=== PATIENT | female | born 1950 | race Caucasian/White ===

== ENCOUNTER 2021-10-21 11:10 | Emergency (ER) | payer MEDICARE ==
[~2021-10-21 11:10] MED LIST: ASPIRIN81 MG PO; DICLOFENAC-MIS1 EAC1 PO; FEOSOL325 MG PO; OCUVITE ADULT1 EAC1 PO; PERCOCET 5-3251 EACH PO; ZOFRAN4 M1 PO; ZYRTEC10 M3 PO
[2021-10-21 13:24] LABS: HCT 41.2 % (37.0-47.0); HGB 13.5 g/dl (12.5-16.0); MCH 29.5 pg (25.0-31.0); MCHC 32.8 g/dL (32.0-36.0); MPV 10.2 fL (6.0-9.5); RBC 4.58 M/uL (4.20-5.40); RDW 13.9 % (11.5-14.0); WBC 17.6 K/uL (4.0-10.5)
[2021-10-21 13:49] LABS: BUN/CREAT RATIO (CALC) 19.1 RATIO; CREATININE 0.68 mg/dL (0.51-0.95); POTASSIUM 3.8 mmol/L (3.5-5.1)
[2021-10-21] MEDS ORDERED: AUGMENTIN 875-1 EACH PO (14:55)
[2021-10-24] MEDS ORDERED: PERCOCET 5-3251 EACH PO (09:11)
== END 2021-10-21 15:10 | disposition home or self-care (01) ==
LOC: FER 11:10
PROVIDERS: Emergency Medicine
DX: S82.841A Displaced bimalleolar fracture of right lower leg, initial encounter for closed fracture (principal); S06.0X0A Concussion without loss of consciousness, initial encounter; W01.0XXA Fall on same level from slipping, tripping and stumbling without subsequent striking against object, initial encounter; Y92.009 Unspecified place in unspecified non-institutional (private) residence as the place of occurrence of the external cause
CPT/HCPCS: 36415; 70450; 72125; 73502; 73560; 73590; 73610; 80048; 93005; J0690; J1170; J7030

== ENCOUNTER → 2021-10-25 | Day surgery (SDC) | payer MEDICARE ==
[~2021-10-25] VITALS: Ht 160 cm; Wt 90.7 kg
[~2021-10-25] MED LIST changes: +AUGMENTIN 875-1 EACH PO
== END | disposition home or self-care (01) ==
LOC: FAS 07:38
DX: S82.851A Displaced trimalleolar fracture of right lower leg, initial encounter for closed fracture (principal); S93.01XA Subluxation of right ankle joint, initial encounter; S82.491A Other fracture of shaft of right fibula, initial encounter for closed fracture; S82.291A Other fracture of shaft of right tibia, initial encounter for closed fracture; X58.XXXA Exposure to other specified factors, initial encounter; Y92.009 Unspecified place in unspecified non-institutional (private) residence as the place of occurrence of the external cause
CPT/HCPCS: 73600; 76000; J0690; J1100; J2250; J2405; J2704; J2795; J3010; J7120